=== PATIENT | male | born 1995 | race Caucasian/White ===

== ENCOUNTER 2022-08-19 07:36 | Emergency (ER) | payer MEDICAID, SELFPAY ==
[2022-08-19 07:42] VITALS: BP 115/68; PULSE 77; RESP 12; TEMP 36.6; O2SAT 97; BMI 23.3
[2022-08-19 08:01] VITALS: BP 142/77; PULSE 86; RESP 16; O2SAT 96
--- NOTE | 2022-08-19 08:05 | CT_ITS ---
WS: [id number] CT ABDOMEN AND PELVIS WITH CONTRAST HISTORY: abdominal pain, vomiting TECHNIQUE: Imaging performed of the abdomen and pelvis with IV contrast. Single phase imaging of the abdomen. Coronal and sagittal reformats are submitted. All CT scans at [facility] use at [address] one of these dose optimization techniques: automated exposure control; mA and/or kV adjustment per patient size (includes targeted exams where dose is matched to clinical indication); or iterative re construction. IV CONTRAST: Omnipaque 350; 95 mL IV. Oral contrast: Yes. DLP: 378.98 mGy.cm COMPARISON: None available. Lower thorax: Lung bases are clear. Heart is normal size. No hiatal hernia. Liver/biliary system: Normal size with no intrahepatic dilatation. Gallbladder: Normal. No gallstones or wall thickening. No pericholecystic fluid. Pancreas: Normal size pancreas and pancreatic duct. No adjacent inflammation. Spleen: Normal size spleen. No mass or infarct. Adrenal glands: Normal. Right kidney: Normal. Left kidney: Normal. Aorta: Normal. Lymphadenopathy: None. Free fluid: None. GI tract: Nondistended stomach. Long segment of circumferential submucosal thickening with mucosal en hancement beginning in the descending colon extending into the sigmoid. No obstruction but the lumen is becoming narrowed. No additional areas of stricture identified. Prior appendectomy. Abdominal wall: Unremarkable abdominal wall. No hernia. Pelvis: No free fluid or adenopathy within the pelvis. Bones: L2 bone island. CT/CT abdomen pelvis w con* [id number] IMPRESSION: 1. Long segment stricture beginning in the mid descending colon into the sigmo id. Mild pericolonic stranding with enhancement of the mucosa. Consistent with an acute stricture. Consistent with patient's history of Crohn's disease. 2. Prior appendectomy. 3. No free fluid.
--- NOTE | 2022-08-19 08:06 | W.ED.ABDPA2 ---
Documented by User: ELAYNE Tom 08/19/22 09:00 HPI - Abdominal Pain General: Chief Complaint: Abdominal Pain Stated Complaint: abd pain Time Seen by Provider: 08/19/22 07:37 Source: patient Mode of arrival: ambulatory Limitations: no limitations History of Present Illness: Patient is a nice 27-year-old male who presents to ED today with a complaint of periumbilical abdominal pain. He tells me he has been told previously he has mild Crohn's disease and has had 3 previous colonoscopies for evaluation of this. He tells me his current pain has been present over the past 2 weeks and seems to be worsening. He does not feel like it is characteristic of his previous Crohn's flares. He reports pain as a burning sensation around his periumbilical region that seems to be worse in the mornings. Often times he states he will vomit in the mornings. He does report pain seems to be worse prior to defecation. He states with his Crohn's he often has diarrhea stools and these have not changed in consistency or frequency over the past 2-week period. He does complain of some mild joint pain. No fevers. He has not had any bloody vomitus or stool. States he was seen at a walk in facility about a week ago and had labs performed which showed some elevations of his LFTs. He was told symptoms could be related to heartburn and was placed on 40mg of a PPI which he states has not helped symptoms. Of note he states he has several members of his family that have been diagnosed with colon cancer in their 30s. No etoh/drug use. MD elicited complaint: abdominal pain Pertinent past history: other (has been told he has mild crohn's disease) Onset (ago): week(s) Pain Consistency: constant Location: Periumbilical Severity: moderate Quality: cramping, aching and burning Radiation: back Relieving factors: bowel movement Associated Symptoms: Reports GI cramping, diarrhea, nausea and vomiting; Denies change in stool character, chills, coffee ground emesis, dysuria, fever(s), hematochezia, hematemesis and melena Review of Systems Const: Reports: other (joint pain); Denies: fever(s), chills, body aches, fatigue or malaise ENMT: Denies: throat pain or odynophagia Card: Denies: chest pain, palpitations, edema, swelling of feet/ankles, lightheadedness, pre-syncope, dyspnea on exertion, orthopnea or leg pain with exertion Resp: Denies: dyspnea, productive cough, non-productive cough, pain on inspiration, hemoptysis or chest congestion GI: Reports: abdominal pain, nausea, vomiting, diarrhea and GI cramping; Denies: hematemesis, coffee ground emesis, pain on defecation, rectal pain, change in stool character, hematochezia or melena : Denies: flank pain, difficulty urinating or dysuria Musc: Reports: back pain and joint pain; Denies: neck pain, extremity pain, extremity swelling, joint swelling or limited range of motion Skin/Breast: Denies: rash Neuro: Denies: headache(s), numbness in extremities, weakness in extremities, sensory changes, difficulty walking or dizziness Physical Exam Const: COMMON NORMALS: no acute distress, patient oriented x3, no limitations, alert and well nourished GENERAL APPEARANCE: cooperative ORIENTATION/CONSCIOUSNESS: Yes awake, Yes oriented to person, Yes oriented to place and Yes oriented to time HENMT: COMMON NORMALS: normocephalic and atraumatic HEAD & SCALP: normal to inspection, normocephalic and atraumatic Eye: COMMON NORMALS: no scleral icterus Chest: COMMONS NORMALS: normal inspection of the chest Resp: COMMON NORMALS: normal respiratory effort and clear to auscultation bilaterally AUSCULTATION: clear to auscultation bilaterally Cardio: COMMON NORMALS: regular rate and regular rhythm RATE: regular rate RHYTHM: regular rhythm GI: COMMON NORMALS: Soft to palpation, No hepatosplenomegaly present and no masses INSPECTION: Yes normal to inspection AUSCULTATION: Yes Hypoactive bowel sounds present PALPATION: Yes Soft to palpation, Yes Tenderness to palpation present (GI) (epigastric, periumbilical, LLQ) and Yes No hepatosplenomegaly present : COMMON NORMALS: Yes no CVA tenderness BLADDER/KIDNEY EXAM: Yes no CVA tenderness Back/Pelvis: COMMON NORMALS: no CVA tenderness and thoracic and lumbar spine normal to inspection Extremity: COMMON NORMALS: normal to inspection GENERAL: Yes normal exam except as noted Neuro: JEAN COMA SCALE: document GCS findings Jean coma scale eye opening: Spontaneous [place] coma scale verbal response: Orientated Jean coma scale motor response: Obey commands Jean coma scale total score: 15 COMMON NORMALS: patient oriented x3, moves all extremities, no focal motor deficits, no sensory deficits noted and gait normal SENSORIUM/ORIENTATION: Yes alert, Yes oriented to person, Yes oriented to place and Yes oriented to time Skin: COMMON NORMALS: no rashes or lesions noted and no jaundice GENERAL SKIN EXAM: no rashes or lesions noted Course Vital Signs: Vital signs: Vital Signs Temperature 97.9 F 08/19/22 07:42 Pulse Rate 84 08/19/22 08:42 Respiratory Rate 16 08/19/22 08:42 Blood Pressure 110/49 08/19/22 08:42 Pulse Oximetry 96 08/19/22 08:42 Oxygen Delivery Me thod 08/19/22 08:42 MDM - Abdominal Pain Medical Decision Making Patient is a nice 27-year-old male here for complaints of abdominal pains over the past 2 weeks or so. He does have a history of Crohn's disease. Last colonoscopy was 3 years ago. He is not on any medications for his Crohn's. While here vital signs are stable. His labs overall are unremarkable. His CT scan does show a long segment stricture beginning in the mid descending colon into the sigmoid consistent with patient's history of Crohn's disease. He is not obstructed. He is passing stool and gas. Patient will be placed on steroids at this time and we will get him set up with general surgery. Case discussed with Dr. De Souza who agrees with plan/care for patient. Strict return to ED precautions given. Lab Data 08/19/22 07:54 08/19/22 07:54 Labs/Radiology: Radiology Impressions Abdomen/Pelvis CT 08/19/22 08:05 IMPRESSION: 1. Long segment stricture beginning in the mid descending colon into the sigmoid. Mild pericolonic stranding with enhancement of the mucosa. Consistent with an acute stricture. Consistent with patient's history of Crohn's disease. 2. Prior appendectomy. 3. No free fluid. Laboratory Results WBC 11.0 10^3/uL (4.0-10.0) H 08/19/22 07:54 RBC 4.54 10^6/uL (4.1-5.3) 08/19/22 07:54 Hgb 14.0 g/dL (11.7-16.6) 08/19/22 07:54 Hct 40.9 % (42.0-52.0) L 08/19/22 07:54 MCV 90.1 fl (80-94) 08/19/22 07:54 MCH 30.8 pg (28.0-34.0) 08/19/22 07:54 MCHC 34.2 g/dL (30.0-36.0) 08/19/22 07:54 RDW 11.6 % (12.1-15.1) L 08/19/22 07:54 Plt Count 209 10^3/cmm (130-400) 08/19/22 07:54 MPV 11.3 fL (7.4-10.4) H 08/19/22 07:54 Neut % (Auto) 84.3 % 08/19/22 07:54 Lymph % (Auto) 6.3 % 08/19/22 07:54 [place] % (Auto) 8.2 % 08/19/22 07:54 Eos % (Auto) 0.4 % 08/19/22 07:54 Baso % (Auto) 0.5 % 08/19/22 07:54 Neut # (Auto) 9.25 10^3/uL (1.8-7.7) H 08/19/22 07:54 Lymph # (Auto) 0.7 10^3/uL (0.8-4.8) L 08/19/22 07:54 [place] # (Auto) 0.9 10^3/uL (0.2-0.9) 08/19/22 07:54 Eos # (Auto) 0.0 10^3/uL (0.0-0.8) 08/19/22 07:54 Baso # (Auto) 0.1 10^3/uL (0.0-0.1) 08/19/22 07:54 Nucleated RBC % (auto) 0 % 08/19/22 07:54 Nucleated RBCs # 0.0 /100WBC 08/19/22 07:54 Sodium 140 mmol/L (136-145) 08/19/22 07:54 Potassium 4.2 mmol/L (3.5-5.1) 08/19/22 07:54 Chloride 105 mmol/L (98-107) 08/19/22 07:54 Carbon Dioxide 26 mmol/L (22-29) 08/19/22 07:54 Anion Gap 13.2 (5-19) 08/19/22 07:54 BUN 23 mg/dL (6-20) H 08/19/22 07:54 Creatinine 0.7 mg/dL (0.7-1.2) 08/19/22 07:54 GFR Calculation 137.4 mL/min (90-130) H 08/19/22 07:54 Glucose 104 mg/dL (65-115) 08/19/22 07:54 Calculated Osmolality 294 mOsm/kg (285-295) 08/19/22 07:54 Calcium 9.1 mg/dL (8.5-10.5) 08/19/22 07:54 Total Bilirubin 0.5 mg/dL (0.15-1.2) 08/19/22 07:54 AST 14 U/L (0-40) 08/19/22 07:54 ALT 9 U/L (0-41) 08/19/22 07:54 Alkaline Phosphatase 73 U/L (40-130) 08/19/22 07:54 Total Protein 7.0 g/dL (6.6-8.7) 08/19/22 07:54 Albumin 4.5 g/dL (3.5-5.2) 08/19/22 07:54 Globulin 2.5 g/dL (1.3-4.6) 08/19/22 07:54 Lipase 22 U/L (13-60) 08/19/22 07:54 Urine Color Yellow (Yellow) 08/19/22 08:13 Urine Appearance Clear (CLEAR) 08/19/22 08:13 Urine pH 6 (5-7) 08/19/22 08:13 Ur Specific [place] 1.020 (1.005-1.030) 08/19/22 08:13 Urine Protein Neg (Negative) 08/19/22 08:13 Urine Glucose (UA) Norm (Normal) 08/19/22 08:13 Urine Ketones Negative (Negative) 08/19/22 08:13 Urine Blood Neg (Negative) 08/19/22 08:13 Urine Nitrate Negative (Negative) 08/19/22 08:13 Urine Bilirubin Neg (Negative) 08/19/22 08:13 Urine Urobilinogen Neg mg/dL (Negative) 08/19/22 08:13 Ur Leukocyte Esterase Negative (Negative) 08/19/22 08:13 Discharge Plan Discharge Patient Disposition: Home Clinical Impression: Colon stricture, Crohn's disease Condition: Stable Prescriptions: New prednisone 10 mg tablet 60 mg PO DAILY 5 Days Qty: 30 0RF Discharge Orders: Discharge ED (Routine); Ordered 08/19/22 Ordered By: Subha Pang Patient Instructions: Crohn Disease (ED), Colon Stricture (DC) Activity Restrictions/Additional Instructions: As we discussed we will have you follow-up with general surgery here for further evaluation and possible colonoscopy. Case management should contact you in regards to this appointment. You need to return to the emergency department immediately for worsening or severe abdominal pain, inability to pass gas or stool, repetitive episodes of vomiting, or any other concerns you may have. I hope you begin to feel better soon. Stand Alone Forms: Work/School Release Coding Level of Care Code ED Asphalt Paving Foreman for Chg Fwd Exam Comprehensive Documented by User: Manny De Souza DO 08/19/22 09:03 HPI - Abdominal Pain General: Chief Complaint: Abdominal Pain Stated Complaint: abd pain Time Seen by Provider: 08/19/22 07:37 Physical Exam Neuro: JEAN COMA SCALE: document GCS findings Jean coma scale total score: 15 Course Vital Signs: Vital signs: Vital Signs Temperature 97.9 F 08/19/22 07:42 Pulse Rate 84 08/19/22 08:42 Respiratory Rate 16 08/19/22 08:42 Blood Pressure 110/49 08/19/22 08:42 Pulse Oximetry 96 08/19/22 08:42 Oxygen Delivery Me thod 08/19/22 08:42 MDM - Abdominal Pain Medical Decision Making Patient is a nice 27-year-old male here for complaints of abdominal pains over the past 2 weeks or so. He does have a history of Crohn's disease. Last colonoscopy was 3 years ago. He is not on any medications for his Crohn's. While here vital signs are stable. His labs overall are unremarkable. His CT scan does show a long segment stricture beginning in the mid descending colon into the sigmoid consistent with patient's history of Crohn's disease. He is not obstructed. He is passing stool and gas. Patient will be placed on steroids at this time and we will get him set up with general surgery. Case discussed with Dr. De Souza who agrees with plan/care for patient. Strict return to ED precautions given. Chart reviewed and patient discussed with midlevel. Agree with assessment and plan. Lab Data 08/19/22 07:54 08/19/22 07:54 Labs/Radiology: Radiology Impressions Abdomen/Pelvis CT 08/19/22 08:05
[2022-08-19] MEDS: morphine 4 mg/mL SDV 1 mL IVP (08:09)
[2022-08-19] MEDS: ondansetron 2 mg/ML SDV 2 mL 4 MG IVP (08:09)
[2022-08-19 08:18] LABS: Add Urine Microscopic? NO; Charge for UA Resulting for Rev
[2022-08-19] MEDS: iohexol 350 mg/mL 500 mL Btl (per mL) IV (08:18)
[2022-08-19 08:24] LABS: Basophils # 0.1 10^3/uL (0.0-0.1); Basophils % 0.5 %; Eosinophils % 0.4 %; Hematocrit 40.9 % (42.0-52.0); Lymphocytes # 0.7 10^3/uL (0.8-4.8); Lymphocytes % 6.3 %; Mean Corpuscular HGB Conc 34.2 g/dL (30.0-36.0); Mean Corpuscular Hemoglobin 30.8 pg (28.0-34.0); Mean Corpuscular Volume 90.1 fl (80-94); Mean Platelet Volume 11.3 fL (7.4-10.4); Monocytes # 0.9 10^3/uL (0.2-0.9); Monocytes % 8.2 %; Neutrophils # 9.25 10^3/uL (1.8-7.7); Neutrophils % 84.3 %; Nucleated Red Blood Cells % 0 %; Platelet Count 209 10^3/cmm (130-400); Red Blood Count 4.54 10^6/uL (4.1-5.3); Red Cell Distribution Width 11.6 % (12.1-15.1)
[2022-08-19 08:28] LABS: Bilirubin Urine Neg (Negative); Blood Urine Neg (Negative); Glucose Urine UA Norm (Normal); Ketones Urine Negative (Negative); Leukocyte Esterase Urine Negative (Negative); Nitrate Urine Negative (Negative); Protein Urine Neg (Negative); Urine Appearance Clear (CLEAR); Urine Color Yellow (Yellow); Urobilinogen Urine Neg (Negative); pH Urine 6 (5-7)
[2022-08-19 08:33] LABS: Alanine Aminotransferase 9 U/L (0-41); Albumin Level 4.5 g/dL (3.5-5.2); Alkaline Phosphatase 73 U/L (40-130); Anion Gap 13.2 (5-19); Aspartate Amino Transferase 14 U/L (0-40); Blood Urea Nitrogen 23 mg/dL (6-20); Calcium 9.1 mg/dL (8.5-10.5); Carbon Dioxide 26 mmol/L (22-29); Chloride 105 mmol/L (98-107); Creatinine Clr Calc Pharmacy 142.1555; Globulin 2.5 g/dL (1.3-4.6); Glomerular Filtration Rate 137.4 mL/min (90-130); Glucose 104 mg/dL (65-115); Lipase 22 U/L (13-60); Osmolality Calculated 294 mOsm/kg (285-295); Potassium 4.2 mmol/L (3.5-5.1); Sodium 140 mmol/L (136-145); Total Bilirubin 0.5 mg/dL (0.15-1.2)
[2022-08-19 08:42] VITALS: BP 110/49; PULSE 84; RESP 16; O2SAT 96
[2022-08-19 09:02] VITALS: BP 110/49; PULSE 88; RESP 17; O2SAT 97
--- NOTE | 2022-08-19 11:10 | DCPLANNER ---
Addendum entered by Lynette Silva 08/26/22 11:58: sr. strategic sourcing manager received the following message from general surgery regarding follow up appointment: we don't manage Crohns, please refer elsewhere.. sr. strategic sourcing manager attempted to call patient to confirm where patient would like to follow up. sr. strategic sourcing manager was unable to speak with patient at this time. Original Note: sr. strategic sourcing manager had message to schedule a follow up appointment for patient with general surgery. sr. strategic sourcing manager sent patients information to the front office staff at general surgery. Patients information will be printed and reviewed. Clinic will call patient with appointment information.
== END 2022-08-19 09:02 | disposition home or self-care (01) ==
PROVIDERS: Emergency Provider Physician Assistant
DX: K50.112 Crohn's disease of large intestine with intestinal obstruction (principal)
CPT/HCPCS: 74177; 80053; 81003; 83690; 85025; 96374; 96375; 99285; J2270; J2405; Q9967

== ENCOUNTER 2022-08-19 21:00 | Emergency (ER) | payer MEDICAID, SELFPAY ==
[2022-08-19 21:10] VITALS: BP 113/70; PULSE 73; RESP 16; TEMP 36.8; O2SAT 96; BMI 23.3
--- NOTE | 2022-08-19 22:58 | ED_ITS ---
HPI - Abdominal Pain General: Chief Complaint: Abdominal Pain Stated Complaint: abd pain Time Seen by Provider: 08/19/22 22:54 Source: patient Mode of arrival: ambulatory Limitations: no limitations History of Present Illness: 27-year-old male has a history of Crohn's disease he is seen here earlier this morning diagnosed with a Crohn's flare is prescribed. In his own he has not been having any pain medicine at home and states his pain is worsened diffuse in nature with nausea rates it an 8 out of 10 denies any fever he has follow-up with GI next Tuesday denies any blood in his stool denies any vomiting. Associated Symptoms: Reports nausea; Denies chills, dysuria and fever(s) Review of Systems Const: Denies: fever(s), chills, body aches or change in appetite Eyes: Denies: blurry vision or eye discomfort ENMT: Denies: throat pain or dental pain Card: Denies: chest pain Resp: Denies: dyspnea GI: Reports: abdominal pain and nausea : Denies: dysuria Musc: Denies: neck pain or back pain Skin/Breast: Denies: rash Neuro: Denies: headache(s) Psych: Denies: depression Krz[place]ztof/Lymph: Denies: easy bruising All/Imm: Denies: urticaria PFSH ED PFSH: Medical History (Updated 08/19/22 @ 23:26 by Panda Swain MD) Crohn's disease Social History (Updated 08/19/22 @ 22:59 by Panda Swain MD) Alcohol intake: never Physical Exam Const: COMMON NORMALS: no acute distress, patient oriented x3 and healthy appearing HENMT: COMMON NORMALS: normocephalic and atraumatic HEAD & SCALP: normocephalic and atraumatic Eye: COMMON NORMALS: Equal, round and reactive pupils present and EOMs intact bilaterally PUPIL: Yes Equal, round and reactive pupils present Neck/C-Spine: COMMON NORMALS: full ROM and supple Chest: COMMONS NORMALS: normal inspection of the chest and normal palpation of entire chest wall Resp: COMMON NORMALS: normal respiratory effort, No retractions, No use of accessory muscles and clear to auscultation bilaterally AUSCULTATION: clear to auscultation bilaterally Cardio: COMMON NORMALS: regular rate, regular rhythm and No murmurs present (Cardio) RATE: regular rate RHYTHM: regular rhythm GI: COMMON NORMALS: Normal to inspection, nondistended, normoactive bowel sounds present, Soft to palpation, non-tender and no masses PALPATION: Yes Soft to palpation Extremity: COMMON NORMALS: normal to inspection and full ROM Neuro: COMMON NORMALS: patient oriented x3, moves all extremities and no focal motor deficits Psych: COMMON NORMALS: mental status grossly normal, Normal thought process present and cooperative THOUGHT PROCESS: Normal thought process present Skin: COMMON NORMALS: no rashes or lesions noted and no wounds GENERAL SKIN EXAM: no rashes or lesions noted Course Vital Signs: Vital signs: Vital Signs Temperature 98.3 F 08/19/22 21:10 Pulse Rate 73 08/19/22 21:10 Respiratory Rate 18 08/19/22 23:09 Blood Pressure 113/70 08/19/22 21:10 Pulse Oximetry 95 08/19/22 23:09 Oxygen Delivery Me thod 08/19/22 21:10 MDM - Abdominal Pain Medical Decision Making Patient presents abdominal pain likely from his Crohn's disease he had a CT scan earlier today his blood work here is all normal his pain is improved we will prescribe him pain medicine he has follow-up with GI next Tuesday he is return if worsening. Lab Data 08/19/22 22:59 08/19/22 22:59 Labs/Radiology: Laboratory Results WBC 8.4 10^3/uL (4.0-10.0) 08/19/22 22:59 RBC 4.47 10^6/uL (4.1-5.3) 08/19/22 22:59 Hgb 13.9 g/dL (11.7-16.6) 08/19/22 22:59 Hct 40.7 % (42.0-52.0) L 08/19/22 22:59 MCV 91.1 fl (80-94) 08/19/22 22:59 MCH 31.1 pg (28.0-34.0) 08/19/22 22:59 MCHC 34.2 g/dL (30.0-36.0) 08/19/22 22:59 RDW 11.7 % (12.1-15.1) L 08/19/22 22:59 Plt Count 214 10^3/cmm (130-400) 08/19/22 22:59 MPV 10.8 fL (7.4-10.4) H 08/19/22 22:59 Neut % (Auto) 68.9 % 08/19/22 22:59 Lymph % (Auto) 17.7 % 08/19/22 22:59 [place] % (Auto) 11.1 % 08/19/22 22:59 Eos % (Auto) 1.6 % 08/19/22 22:59 Baso % (Auto) 0.5 % 08/19/22 22:59 Neut # (Auto) 5.78 10^3/uL (1.8-7.7) 08/19/22 22:59 Lymph # (Auto) 1.5 10^3/uL (0.8-4.8) 08/19/22 22:59 [place] # (Auto) 0.9 10^3/uL (0.2-0.9) 08/19/22 22:59 Eos # (Auto) 0.1 10^3/uL (0.0-0.8) 08/19/22 22:59 Baso # (Auto) 0.0 10^3/uL (0.0-0.1) 08/19/22 22:59 Nucleated RBC % (auto) 0 % 08/19/22 22:59 Nucleated RBCs # 0.0 /100WBC 08/19/22 22:59 Sodium 139 mmol/L (136-145) 08/19/22 22:59 Potassium 3.9 mmol/L (3.5-5.1) 08/19/22 22:59 Chloride 102 mmol/L (98-107) 08/19/22 22:59 Carbon Dioxide 27 mmol/L (22-29) 08/19/22 22:59 Anion Gap 13.9 (5-19) 08/19/22 22:59 BUN 15 mg/dL (6-20) 08/19/22 22:59 Creatinine 0.9 mg/dL (0.7-1.2) 08/19/22 22:59 GFR Calculation 102.8 mL/min (90-130) 08/19/22 22:59 Glucose 104 mg/dL (65-115) 08/19/22 22:59 Calculated Osmolality 289 mOsm/kg (285-295) 08/19/22 22:59 Lactate 0.9 mmol/L (0.5-2.2) 08/19/22 22:59 Calcium 9.5 mg/dL (8.5-10.5) 08/19/22 22:59 Total Bilirubin 0.5 mg/dL (0.15-1.2) 12 22:59 AST 15 U/L (0-40) 12 22:59 ALT 10 U/L (0-41) 08/19/22 22:59 Alkaline Phosphatase 70 U/L (40-130) 08/19/22 22:59 Total Protein 7.4 g/dL (6.6-8.7) 12 22:59 Albumin 4.4 g/dL (3.5-5.2) 08/19/22 22:59 Globulin 3.0 g/dL (1.3-4.6) 08/19/22 22:59 Lipase 14 U/L (13-60) 08/19/22 22:59 Discharge Plan Discharge Patient Disposition: Home Clinical Impression: Abdominal pain, Crohn's disease Prescriptions: New hydrocodone-acetaminophen 5-325 mg tablet 1 tab PO Q6H PRN (Reason: pain) Qty: 14 0RF ondansetron 4 mg tablet,disintegrating 4 mg PO Q6H PRN (Reason: nausea and vomiting) Qty: 14 0RF No Action prednisone 10 mg tablet 60 mg PO DAILY 5 Days Qty: 30 0RF Discharge Orders: Discharge ED (Routine); Ordered 08/19/22 Ordered By: Panda Swain Discharge Diet: Advance as tolerated Discharge Activity: Resume usual activity Patient Instructions: Abdominal Pain (ED), Opioid Safety, Pain Management Coding Level of Care Code ED Cleaner Laboratory Equipment for Chg Fwd Exam Comprehensive
[2022-08-19 23:02] LABS: Basophils % 0.5 %; Eosinophils # 0.1 10^3/uL (0.0-0.8); Eosinophils % 1.6 %; Hematocrit 40.7 % (42.0-52.0); Hemoglobin 13.9 g/dL (11.7-16.6); Lymphocytes # 1.5 10^3/uL (0.8-4.8); Lymphocytes % 17.7 %; Mean Corpuscular HGB Conc 34.2 g/dL (30.0-36.0); Mean Corpuscular Hemoglobin 31.1 pg (28.0-34.0); Mean Corpuscular Volume 91.1 fl (80-94); Mean Platelet Volume 10.8 fL (7.4-10.4); Monocytes # 0.9 10^3/uL (0.2-0.9); Monocytes % 11.1 %; Neutrophils # 5.78 10^3/uL (1.8-7.7); Neutrophils % 68.9 %; Nucleated Red Blood Cells % 0 %; Platelet Count 214 10^3/cmm (130-400); Red Blood Count 4.47 10^6/uL (4.1-5.3); Red Cell Distribution Width 11.7 % (12.1-15.1); White Blood Count 8.4 10^3/uL (4.0-10.0)
[2022-08-19 23:09] VITALS: RESP 18; O2SAT 95
[2022-08-19] MEDS: ondansetron 2 mg/ML SDV 2 mL 4 MG IVP (23:09)
[2022-08-19] MEDS: HYDROmorphone 1 mg/mL INJ 1 mL IVP (23:09)
[2022-08-19 23:20] LABS: Lactate (Lactic Acid level) 0.9 mmol/L (0.5-2.2)
[2022-08-19 23:21] LABS: Alanine Aminotransferase 10 U/L (0-41); Albumin Level 4.4 g/dL (3.5-5.2); Alkaline Phosphatase 70 U/L (40-130); Anion Gap 13.9 (5-19); Aspartate Amino Transferase 15 U/L (0-40); Blood Urea Nitrogen 15 mg/dL (6-20); Calcium 9.5 mg/dL (8.5-10.5); Carbon Dioxide 27 mmol/L (22-29); Chloride 102 mmol/L (98-107); Glomerular Filtration Rate 102.8 mL/min (90-130); Glucose 104 mg/dL (65-115); Lipase 14 U/L (13-60); Osmolality Calculated 289 mOsm/kg (285-295); Potassium 3.9 mmol/L (3.5-5.1); Sodium 139 mmol/L (136-145); Total Bilirubin 0.5 mg/dL (0.15-1.2); Total Protein 7.4 g/dL (6.6-8.7)
[2022-08-19 23:40] VITALS: BP 118/63; PULSE 72; RESP 16; O2SAT 97
== END 2022-08-19 23:40 | disposition home or self-care (01) ==
PROVIDERS: Emergency Provider Emergency Medicine
DX: R10.9 Unspecified abdominal pain (principal); K50.90 Crohn's disease, unspecified, without complications
CPT/HCPCS: 80053; 83605; 83690; 85025; 96374; 96375; 99284; J1170; J2405

== ENCOUNTER 2022-08-25 09:55 | Inpatient (IN) | payer MEDICAID, SELFPAY ==
[2022-08-25] VITALS (83 sets, daily range): BP systolic 101–133; BP diastolic 56–83; PULSE 53–71; RESP 15–16; TEMP 36.7–36.9; O2SAT 86–98; BMI 22.9
[2022-08-25 11:23] LABS: Basophils % 0.4 %; Eosinophils # 0.1 10^3/uL (0.0-0.8); Eosinophils % 1.8 %; Hemoglobin 15.2 g/dL (11.7-16.6); Lymphocytes # 1.9 10^3/uL (0.8-4.8); Lymphocytes % 37.1 %; Mean Corpuscular HGB Conc 34.5 g/dL (30.0-36.0); Mean Corpuscular Hemoglobin 30.2 pg (28.0-34.0); Mean Corpuscular Volume 87.5 fl (80-94); Monocytes # 0.5 10^3/uL (0.2-0.9); Monocytes % 9.9 %; Neutrophils # 2.54 10^3/uL (1.8-7.7); Neutrophils % 50.4 %; Nucleated Red Blood Cells % 0 %; Platelet Count 239 10^3/cmm (130-400); Red Blood Count 5.03 10^6/uL (4.1-5.3); Red Cell Distribution Width 11.5 % (12.1-15.1)
--- NOTE | 2022-08-25 11:26 | ED_ITS ---
HPI - Abdominal Pain General: Chief Complaint: Abdominal Pain Stated Complaint: abd pain Time Seen by Provider: 08/25/22 11:26 History of Present Illness: Mr. Garcia is a 27-year-old gentleman with significant past medical history of Crohn's disease presenting to the emergency department due to continued and worsening abdominal pain. Onset of symptoms approximately 1.5 weeks ago and gradual. He notes associated nausea, decreased p.o. intake, weight loss, small bowel movements with blood in stool. He was previously seen in the emergency department on 08/19 and at that time was d iagnosed with a Crohn's flare treated with steroids, antiemetic, analgesia. Despite these treatments patient continues to worsen. Intensity symptoms is moderate to severe. He is unable to tolerate p.o. intake at this time. No other specific changes in health, exacerbating, or alleviating factors identified. The patient reports diagnosis of Crohn's disease in his early teenage years. He recently established care with Dr. Cartwright in [facility] at [facility]. He is not currently on any prescribed treatments for disease modification or chronic treatment. Onset (ago): week(s) Pain Consistency: constant Location: Diffuse Severity: severe Quality: stabbing and aching Radiation: back Migration to: other Exacerbating factors: eating and movement Relieving factors: nothing Context: other Associated Symptoms: Reports anorexia, change in stool character, hematochezia and nausea Review of Systems General: Reports: 10 or more systems reviewed and unremarkable except in HPI and below GI: Reports: nausea, change in stool character and hematochezia PFS ED PFSH: Medical History Crohn's disease Surgical History History of appendectomy Family History (Updated 08/25/22 @ 16:53 by Saeed Castro MD) Other Colon cancer Social History (Updated 08/25/22 @ 16:53 by Saeed Castro MD) Smoking and tobacco status: never smoked Alcohol intake: never Substance/Drug Use: never Physical Exam Const: COMMON NORMALS: alert GENERAL APPEARANCE: cooperative, well developed, in distress (Mild to moderate appearing due to abdominal pain) and ill appearing (Somewhat) HENMT: COMMON NORMALS: normocephalic and atraumatic HEAD & SCALP: normocephalic and atraumatic Eye: COMMON NORMALS: conjunctivae normal CONJUNCTIVA: Yes conjunctivae normal SCLERA: sclerae normal Neck/C-Spine: COMMON NORMALS: supple GENERAL: Yes trachea midline Resp: COMMON NORMALS: clear to auscultation bilaterally EFFORT & INSPECTION: Yes able to speak in complete sentences AUSCULTATION: clear to auscultation bilaterally Cardio: COMMON NORMALS: regular rate and regular rhythm RATE: regular rate RHYTHM: regular rhythm GI: COMMON NORMALS: Soft to palpation PALPATION: Yes Soft to palpation, Yes Tenderness to palpation present (GI), Yes Guarding due to palpation present (GI) and No Rigid due to palpation Extremity: GENERAL: Yes normal exam except as noted and No edema Neuro: COMMON NORMALS: moves all extremities SENSORIUM/ORIENTATION: Yes alert and No Orientation impaired Psych: COMMON NORMALS: mental status grossly normal and Normal thought process present THOUGHT PROCESS: Normal thought process present Course Vital Signs: Vital signs: Vital Signs Temperature 97.8 F 08/26/22 21:57 Pulse Rate 69 08/26/22 21:57 Respiratory Rate 18 08/26/22 21:57 Blood Pressure 109/61 08/26/22 21:57 Pulse Oximetry 94 08/26/22 21:57 Oxygen Delivery Me thod 08/26/22 15:13 MDM - Abdominal Pain Medical Decision Making 27-year-old male presenting with abdominal pain and changes of bowel movement in the context of history of Crohn's not currently on disease modification. Exam as above, abdominal tenderness without evidence of acute surgical abdomen. Labs with no leukocytosis, hemoglobin normal. No significant other derangements. No evidence of UTI. Imaging notable for colitis which does not appear improved despite previous treatment. Did attempt to contact the patient's primary commercial finance analyst however was unable to. Patient only had minimal improvement in treatment with fluids, analgesia, antiemetic and therefore believe that inpatient management is reasonable for acute Crohn's flare. The results of ED evaluation were discussed with the patient including plan for admission due to requirement for level of care not available if discharged to prevent significant worsening/deterioration. Patient agreeable with plan. Discussed with hospitalist service who was agreeable to admit patient. Medical Records I reviewed the patient's medical records. Lab Data I reviewed the patient's lab results. 08/25/22 11:16 08/25/22 11:16 Labs/Radiology: Radiology Impressions Abdomen/Pelvis CT 08/25/22 12:03 IMPRESSION: 1. Findings of acute colitis involving the LEFT colon extending into the sigmoid colon unchanged since the prior recent CT. 2. No drainable fluid collection or abscess. 3. No other significant interval changes. Laboratory Results WBC 5.0 10^3/uL (4.0-10.0) 08/25/22 11:16 RBC 5.03 10^6/uL (4.1-5.3) 08/25/22 11:16 Hgb 15.2 g/dL (11.7-16.6) 08/25/22 11:16 Hct 44.0 % (42.0-52.0) 08/25/22 11:16 MCV 87.5 fl (80-94) 08/25/22 11:16 MCH 30.2 pg (28.0-34.0) 08/25/22 11:16 MCHC 34.5 g/dL (30.0-36.0) 08/25/22 11:16 RDW 11.5 % (12.1-15.1) L 08/25/22 11:16 Plt Count 239 10^3/cmm (130-400) 08/25/22 11:16 MPV 10.0 fL (7.4-10.4) 08/25/22 11:16 Neut % (Auto) 50.4 % 08/25/22 11:16 Lymph % (Auto) 37.1 % 08/25/22 11:16 [place] % (Auto) 9.9 % 08/25/22 11:16 Eos % (Auto) 1.8 % 08/25/22 11:16 Baso % (Auto) 0.4 % 08/25/22 11:16 Neut # (Auto) 2.54 10^3/uL (1.8-7.7) 08/25/22 11:16 Lymph # (Auto) 1.9 10^3/uL (0.8-4.8) 08/25/22 11:16 [place] # (Auto) 0.5 10^3/uL (0.2-0.9) 08/25/22 11:16 Eos # (Auto) 0.1 10^3/uL (0.0-0.8) 08/25/22 11:16 Baso # (Auto) 0.0 10^3/uL (0.0-0.1) 08/25/22 11:16 Nucleated RBC % (auto) 0 % 08/25/22 11:16 Nucleated RBCs # 0.0 /100WBC 08/25/22 11:16 ESR 2 mm/hr (0-10) 08/25/22 11:16 Sodium 138 mmol/L (136-145) 08/25/22 11:16 Potassium 4.0 mmol/L (3.5-5.1) 08/25/22 11:16 Chloride 98 mmol/L (98-107) 08/25/22 11:16 Carbon Dioxide 29 mmol/L (22-29) 08/25/22 11:16 Anion Gap 15.0 (5-19) 08/25/22 11:16 BUN 12 mg/dL (6-20) 08/25/22 11:16 Creatinine 0.8 mg/dL (0.7-1.2) 08/25/22 11:16 GFR Calculation 117.8 mL/min (90-130) 08/25/22 11:16 Glucose 94 mg/dL (65-115) 08/25/22 11:16 Calculated Osmolality 286 mOsm/kg (285-295) 08/25/22 11:16 Calcium 9.6 mg/dL (8.5-10.5) 08/25/22 11:16 Total Bilirubin 0.5 mg/dL (0.15-1.2) 08/25/22 11:16 AST 23 U/L (0-40) 08/25/22 11:16 ALT 12 U/L (0-41) 08/25/22 11:16 Alkaline Phosphatase 63 U/L (40-130) 08/25/22 11:16 C-Reactive Protein 5.9 mg/L (0.0-4.9) H 08/25/22 11:16 Total Protein 7.6 g/dL (6.6-8.7) 08/25/22 11:16 Albumin 4.9 g/dL (3.5-5.2) 08/25/22 11:16 Globulin 2.7 g/dL (1.3-4.6) 08/25/22 11:16 Lipase 16 U/L (13-60) 08/25/22 11:16 Urine Color Yellow (Yellow) 08/25/22 12:38 Urine Appearance Clear (CLEAR) 08/25/22 12:38 Urine pH 7 (5-7) 08/25/22 12:38 Ur Specific [place] 1.010 (1.005-1.030) 08/25/22 12:38 Urine Protein Neg (Negative) 08/25/22 12:38 Urine Glucose (UA) Norm (Normal) 08/25/22 12:38 Urine Ketones Negative (Negative) 08/25/22 12:38 Urine Blood Neg (Negative) 08/25/22 12:38 Urine Nitrate Negative (Negative) 08/25/22 12:38 Urine Bilirubin Neg (Negative) 08/25/22 12:38 Urine Urobilinogen Neg mg/dL (Negative) 08/25/22 12:38 Ur Leukocyte Esterase Negative (Negative) 08/25/22 12:38 Influenza Type A Ag negative (Negative) 08/25/22 12:23 Influenza Type B Ag negative (Negative) 08/25/22 12:23 SARS-CoV-2 Ag (Rapid) Negative (Negative) 08/25/22 12:23 Discharge Plan Discharge Patient Disposition: Placed in Observation Admit Provider: Saeed Castro Clinical Impression: Crohn's disease, Colitis Coding Level of Care Code ED Contact Worker for Chg Fwd Exam Comprehensive
[2022-08-25 11:42] LABS: Alanine Aminotransferase 12 U/L (0-41); Albumin Level 4.9 g/dL (3.5-5.2); Alkaline Phosphatase 63 U/L (40-130); Aspartate Amino Transferase 23 U/L (0-40); Blood Urea Nitrogen 12 mg/dL (6-20); Calcium 9.6 mg/dL (8.5-10.5); Carbon Dioxide 29 mmol/L (22-29); Chloride 98 mmol/L (98-107); Globulin 2.7 g/dL (1.3-4.6); Glomerular Filtration Rate 117.8 mL/min (90-130); Glucose 94 mg/dL (65-115); Lipase 16 U/L (13-60); Osmolality Calculated 286 mOsm/kg (285-295); Sodium 138 mmol/L (136-145); Total Bilirubin 0.5 mg/dL (0.15-1.2); Total Protein 7.6 g/dL (6.6-8.7)
[2022-08-25 11:54] LABS: Slide Review Slide Review Perform
--- NOTE | 2022-08-25 12:03 | CT_ITS ---
WS: [id number] CT ABDOMEN PELVIS TECHNIQUE: Contrast-enhanced CT of the abdomen and pelvis with coronal and sagittal reformatted image s. CLINICAL INFORMATION: worsening abd pain, hx crohns COMPARISON: August 19, 2022 DLP: 375.[address] scans at [facility] use at least one of these dose optimization techniques: automated e xposure control; mA and/or kV adjustment per patient size (includes targeted exams where dose is matc hed to clinical indication); or iterative reconstruction. FINDINGS: Bowel wall thickening with mucosal enhancement involving the descending LEFT colon extendin g into the sigmoid colon compatible with colitis similar to the recent examination. Less prominent delvis wel wall thickening involving transverse colon. Prior appendectomy. No small or large bowel obstructi on. No evidence of drainable fluid collection or abscess. Lung bases are well aerated. Normal liver. Normal portal vein and splenic vein. Normal spleen. Normal GE junction. Normal gallbladder. Adrenal glands are normal. Normal renal parenchymal enhancement hyd ronephrosis. Normal caliber abdominal aorta. Celiac and SMA are patent. CT/CT abdomen pelvis w con* [id number] IMPRESSION: 1. Findings of acute colitis involving the LEFT colon extending into the sigmo id colon unchanged since the prior recent CT. 2. No drainable fluid collection or abscess. 3. No other significant interval changes.
[2022-08-25] MEDS: sodium chloride 0.9% 1,000 ML 999 ML IV (12:39)
[2022-08-25] MEDS: metoclopramide 5 mg/mL SDV 2 mL 10 MG IVP (12:40)
[2022-08-25] MEDS: morphine 4 mg/mL SDV 1 mL IVP (12:40)
[2022-08-25 12:47] LABS: Influenza A by IFA negative (Negative); Influenza B by IFA negative (Negative)
[2022-08-25 12:49] LABS: SARS Covid-2 Antigen Negative (Negative)
[2022-08-25 12:51] LABS: Add Urine Microscopic? NO; Charge for UA Resulting for Rev
[2022-08-25 12:53] LABS: Bilirubin Urine Neg (Negative); Blood Urine Neg (Negative); Glucose Urine UA Norm (Normal); Ketones Urine Negative (Negative); Leukocyte Esterase Urine Negative (Negative); Nitrate Urine Negative (Negative); Protein Urine Neg (Negative); Urine Appearance Clear (CLEAR); Urine Color Yellow (Yellow); Urobilinogen Urine Neg (Negative); pH Urine 7 (5-7)
[2022-08-25] MEDS: iohexol 350 mg/mL 500 mL Btl (per mL) IV (12:55)
[2022-08-25] MEDS: HYDROmorphone 1 mg/mL INJ 1 mL 0.5 MG IVP ×2 (13:26→17:20)
--- NOTE | 2022-08-25 16:52 | PM.HP ---
Providers/Chief Complaint Chief Complaint: abd pain History of Present Illness Kevin Garcia is a 27 year old male with a past medical history of Crohn's disease who presents to [facility] due to a 2-week history of abdominal pain, abdominal distention. He tells me that he has a history of Crohn's disease, diagnosed when he was 14 years old, to his knowledge he does not have any upper GI involvement, his last admission for a exacerbation was roughly 4 to 5 years ago he also had a colonoscopy they found polyps but none were cancerous. He does have a family history of colon cancer. He telemetry for the last 2 weeks has been having abdominal pain abdominal distention, he tells me that he is constipated, when he does go to the bathroom it is hard for him to pass a stool, at times it is bloody. No fevers, no chills, no history of food poisoning, no sick contacts, recent travel Review of Systems Const: Denies: fever(s), chills, fatigue or malaise Eyes: Denies: change in vision ENMT: Denies: nasal congestion Resp: Denies: dyspnea, productive cough, non-productive cough or wheezing GI: Denies: nausea, vomiting, hematemesis or diarrhea : Denies: dysuria Skin/Breast: Denies: rash Neuro: Denies: headache(s), dizziness or vertigo Endo: Denies: polyuria or polydipsia Medications/Allergies Home Medications Medication Instructions Recorded Confirmed Last Taken Type prednisone 10 mg tablet 60 mg PO DAILY 08/25/22 08/25/22 Unknown History Allergies Allergy/AdvReac Type Severity Reaction Status Date / Time Penicillins Allergy ALGY-Hives Verified 08/19/22 07:42 PFSH Acute PFSH: Medical History Crohn's disease Surgical History History of appendectomy Family History (Updated 08/25/22 @ 16:53 by Saeed Castro MD) Other Colon cancer Social History (Updated 08/25/22 @ 16:53 by Saeed Castro MD) Smoking and tobacco status: never smoked Alcohol intake: never Substance/Drug Use: never Vitals/I&O/Wt Last Vital Signs Temp 98.4 F 08/25/22 10:07 Pulse 71 08/25/22 12:11 Resp 15 08/25/22 13:26 BP 121/74 08/25/22 14:35 Pulse Ox 94 08/25/22 14:10 O2 Del Method 08/25/22 12:11 Weight last 48 hrs Weight 62.596 kg Physical Exam Const: COMMON NORMALS: no acute distress and patient oriented x3 Eye: COMMON NORMALS: Equal, round and reactive pupils present and EOMs intact bilaterally Resp: COMMON NORMALS: normal respiratory effort, No retractions, No use of accessory muscles and clear to auscultation bilaterally AUSCULTATION: clear to auscultation bilaterally Cardio: COMMON NORMALS: no JVD, regular rate, regular rhythm, S1 normal heart sound present and S2 normal heart sound present RATE: regular rate RHYTHM: regular rhythm HEART SOUNDS: S1 normal heart sound present and S2 normal heart sound present GI: COMMON NORMALS: Normal to inspection, nondistended, normoactive bowel sounds present, Soft to palpation and non-tender Extremity: COMMON NORMALS: no pedal edema Neuro: COMMON NORMALS: patient oriented x3 Psych: COMMON NORMALS: mental status grossly normal Data 08/25/22 11:16 08/25/22 11:16 A&P Assessment and plan (1) Crohn's disease: (2) Colitis: Plan Crohn's disease exacerbation -Has colitis on CT imaging FINDINGS: Bowel wall thickening with mucosal enhancement involving the descending LEFT colon extending into the sigmoid colon compatible with colitis similar to the recent examination. Less prominent bowel wall thickening involving transverse colon. Prior appendectomy. No small or large bowel obstruction. No evidence of drainable fluid collection or abscess. Lung bases are well aerated. Normal liver. Normal portal vein and splenic vein. Normal spleen. Normal GE junction. Normal gallbladder. Adrenal glands are normal. Normal renal parenchymal enhancement hydronephrosis. Normal caliber abdominal aorta. Celiac and SMA are patent. -There is no GI specialist available here to [facility], and currently transfer is difficult given bed availability at tertiary level centers -Patient is agreeable to admit here to [facility] -We will start him on Solu-Medrol -Cipro and Flagyl for antibiotic coverage -Gentle IV hydration -Morphine for pain control -Clear liquid diet -Stool studies -We will see what CRP, ESR is -Full code -Lovenox for DVT prophylaxis Attestations Medical Necessity Statement*: Patient requires position for Crohn's disease exacerbation, inpatient, greater than 2 midnights Coding Level of Care Code 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
[2022-08-25 17:36] LABS: Erythrocyte Sedimentation Rate 2 mm/hr (0-10)
--- NOTE | 2022-08-25 17:38 | PC.NURSE ---
report called to Shara hyde
--- NOTE | 2022-08-25 17:39 | PC.NURSE ---
Shara KRAMER stated she would call ED when room is ready.
[2022-08-25 17:58] LABS: C Reactive Protein 5.9 mg/L (0.0-4.9)
[2022-08-25] MEDS: ciprofloxacin 400 MG/200 ML PREMIX 200 MG IV (21:24)
[2022-08-25] MEDS: sodium chloride 0.9% 1,000 ML 100 ML IV (21:24)
[2022-08-25] MEDS: pantoprazole 40 mg SDV IVP (21:25)
[2022-08-25] MEDS: morphine 4 mg/mL SDV 1 mL 2 MG IVP (22:15)
[2022-08-25] MEDS: metroNIDAZOLE IV 500 MG/100 ML PREMIX 100 MG IV (23:44)
[2022-08-26] VITALS (10 sets, daily range): BP systolic 104–128; BP diastolic 58–76; PULSE 56–79; RESP 15–18; TEMP 36.4–36.8; O2SAT 94–97
[2022-08-26] MEDS: morphine 4 mg/mL SDV 1 mL 2 MG IVP ×2 (04:07→08:58)
[2022-08-26 04:55] LABS: Basophils % 0.2 %; Eosinophils % 0.2 %; Hematocrit 43.7 % (42.0-52.0); Hemoglobin 14.9 g/dL (11.7-16.6); Lymphocytes # 1.1 10^3/uL (0.8-4.8); Lymphocytes % 22.4 %; Mean Corpuscular HGB Conc 34.1 g/dL (30.0-36.0); Mean Corpuscular Hemoglobin 30.5 pg (28.0-34.0); Mean Corpuscular Volume 89.4 fl (80-94); Mean Platelet Volume 10.9 fL (7.4-10.4); Monocytes # 0.1 10^3/uL (0.2-0.9); Monocytes % 1.8 %; Neutrophils # 3.71 10^3/uL (1.8-7.7); Neutrophils % 74.8 %; Nucleated Red Blood Cells % 0 %; Platelet Count 241 10^3/cmm (130-400); Red Blood Count 4.89 10^6/uL (4.1-5.3); Red Cell Distribution Width 11.2 % (12.1-15.1)
[2022-08-26 05:22] LABS: Blood Urea Nitrogen 12 mg/dL (6-20); Calcium 9.5 mg/dL (8.5-10.5); Carbon Dioxide 28 mmol/L (22-29); Chloride 103 mmol/L (98-107); Glomerular Filtration Rate 117.8 mL/min (90-130); Glucose 127 mg/dL (65-115); Osmolality Calculated 295 mOsm/kg (285-295); Sodium 142 mmol/L (136-145)
[2022-08-26] MEDS: metroNIDAZOLE IV 500 MG/100 ML PREMIX 100 MG IV ×2 (09:02→16:51)
[2022-08-26] MEDS: sodium chloride 0.9% 1,000 ML 100 ML IV ×2 (09:04→18:08)
[2022-08-26] MEDS: ondansetron 2 mg/ML SDV 2 mL 4 MG IVP ×2 (09:11→18:09)
[2022-08-26] MEDS: HYDROmorphone 1 mg/mL INJ 1 mL 0.5 MG IVP ×2 (10:06→14:14)
[2022-08-26] MEDS: pantoprazole 40 mg SDV IVP ×2 (10:13→20:29)
[2022-08-26] MEDS: ciprofloxacin 400 MG/200 ML PREMIX 200 MG IV ×2 (10:14→20:24)
--- NOTE | 2022-08-26 10:43 | PC.CHAP ---
Pastoral Care Encounter/Spiritual Assessment Type of Contact [] Declined orange picker visit [] Patient/Family/Request visit [] Outpatient visit [] Follow-up visit [] Physician referral [] Code/Alert [x] Routine visit [] Staff referral [] Actively dying [] Patient sleeping [] Family support [] [] Out of room [] Palliative care [] [x] Receiving care in room [] Pre-surgical visit [] Trauma [] Long length of stay [] ICU visit [] Other: Relational/Emotional Strength [x] Patient feels connected with others/family/visitors/staff [] Distress [] Loneliness/isolation [] Abandonment Spirituality of Patient [x] Person of Concepcion [] Attends Sabianist of their Concepcion [x] Believes in Prayer [] Reads Bible or Restoration materials [] There are Spiritual issues to be addressed Tai Chi Instructor Interventions [x] Prayer [x] Active listening [x] Non-anxious presence [x] Spiritual/emotional support [] Crisis/trauma care [x] Spiritual counseling [] Bereavement support [] Provided bereavement packet [] Provided Bible/devotional materials [] Provided toy/stuffed animal, coloring book to patient or family member [] Provided Communion [] Anointing/[place] [] Salvation [x] Completed spiritual assessment [] Other: Impact on Illness or Injury [] Angry [] Fearful [x] Anxious [] Often cries [] Exhaustion [] Unable to work [] Unable to attend gnosticism [] Unable to walk/stand [] Unable to read [] Unable to drive [] Unable to eat/drink [] Unable to sleep [] Unable to be with family [] Patient intubated [] Other: Summary dealing with scottyraulmolly wilhelmchilango says he need to go [place] Time spent with patient 10 mins
--- NOTE | 2022-08-26 11:54 | P.PN_ITS ---
Subjective Subjective: Patient continues to have episodes of abdominal pain this morning, no fevers, no chills, no nausea, vomiting Vitals/I&O/Wt Last Vital Signs Temp 97.8 F 08/26/22 07:46 Pulse 69 08/26/22 07:46 Resp 16 08/26/22 07:46 BP 126/76 08/26/22 07:46 Pulse Ox 97 08/26/22 07:46 O2 Del Method 08/26/22 07:46 08/25/22 08/26/22 08/26/22 22:59 06:59 14:59 Intake Total 320 / 320 340 / 660 1000 / 1000 Balance 320 / 320 340 / 660 1000 / 1000 Weight last 48 hrs Weight 62.596 kg Physical Exam Const: COMMON NORMALS: no acute distress and patient oriented x3 Resp: COMMON NORMALS: normal respiratory effort, No retractions, No use of accessory muscles and clear to auscultation bilaterally AUSCULTATION: clear to auscultation bilaterally Cardio: COMMON NORMALS: regular rate, regular rhythm, S1 normal heart sound present and S2 normal heart sound present RATE: regular rate RHYTHM: regular rhythm HEART SOUNDS: S1 normal heart sound present and S2 normal heart sound present GI: COMMON NORMALS: Normal to inspection, nondistended, normoactive bowel sounds present and non-tender Extremity: COMMON NORMALS: no pedal edema Neuro: COMMON NORMALS: patient oriented x3 Psych: COMMON NORMALS: mental status grossly normal Data 08/26/22 03:56 08/26/22 03:56 A&P Assessment and plan (1) Crohn's disease: (2) Colitis: Plan Crohn's disease exacerbation -Has colitis on CT imaging FINDINGS: Bowel wall thickening with mucosal enhancement involving the descending LEFT colon extending into the sigmoid colon compatible with colitis similar to the recent examination. Less prominent bowel wall thickening involving transverse colon. Prior appendectomy. No small or large bowel obstruction. No evidence of drainable fluid collection or abscess. Lung bases are well aerated. Normal liver. Normal portal vein and splenic vein. Normal spleen. Normal GE junction. Normal gallbladder. Adrenal glands are normal. Normal renal parenchymal enhancement hydronephrosis. Normal caliber abdominal aorta. Celiac and SMA are patent. 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
--- NOTE | 2022-08-26 16:30 | PC.NURSE ---
1630 - PT CONTINUES TO COMPLAIN OF INCREASING ABDOMINAL PAIN. RATES PAIN AT 9/10 ON PAIN SCALE. MD INCREASES 0.5MG DILAUDID TO 1MG DILAUDID Q4H. BOWEL SOUNDS PRESENT. ABDOMEN SOFT/TENDER.
[2022-08-26] MEDS: HYDROmorphone 1 mg/mL INJ 1 mL IVP (18:09)
--- NOTE | 2022-08-26 18:22 | P.TS_ITS ---
Transfer Summary Providers Date of Admission: 08/25/22 14:16 Date of Discharge/Transfer: 08/26/22 Attending Provider at Admission: Saeed Castro MD Attending Provider at Transfer: Saeed Castro MD Transfer Plans: Anticipated date of transfer: 08/26/22 . Diagnoses at Discharge Discharge Diagnosis (1) Crohn's disease: Status: Acute (2) Colitis: Status: Acute Reason for Visit Reason for Visit abd pain Hospital Course Hospital Course Kevin Garcia is a 27 year old male with a past medical history of Crohn's disease who presents to [facility] due to a 2-week history of abdominal pain, abdominal distention.? He tells me that he has a history of Crohn's disease, diagnosed when he was 14 years old, to his knowledge he does not have any upper GI involvement, his last admission for a exacerbation was roughly 4 to 5 years ago he also had a colonoscopy they found polyps but none were cancerous.? He does have a family history of colon cancer.? He telemetry for the last 2 weeks has been having abdominal pain abdominal distention, he tells me that he is constipated, when he does go to the bathroom it is hard for him to pass a stool, at times it is bloody.? No fevers, no chills, no history of food poisoning, no sick contacts, recent travel Crohn's disease exacerbation -Has colitis on CT imaging FINDINGS: Bowel wall thickening with mucosal enhancement involving the descending LEFT colon extending into the sigmoid colon compatible with colitis similar to the recent examination. Less prominent bowel wall thickening involving transverse colon. Prior appendectomy. No small or large bowel obstruction. No evidence of drainable fluid collection or abscess. Lung bases are well aerated. Normal liver. Normal portal vein and splenic vein. Normal spleen. Normal GE junction. Normal gallbladder. Adrenal glands are normal. Normal renal parenchymal enhancement hydronephrosis. Normal caliber abdominal aorta. Celiac and SMA are patent. -There is no GI specialist available here to [facility], and currently transfer is difficult given bed availability at tertiary level centers -Patient is agreeable to admit here to [facility] -Continue Solu-Medrol -Cipro and Flagyl for antibiotic coverage -Gentle IV hydration -Switch to Dilaudid for pain control -Clear liquid diet -Stool studies -Full code -Lovenox for DVT prophylaxis Patient continues to have diffuse abdominal pain, his abdomen slightly distended, slightly decreased bowel sounds, received 48 hours of steroids, antibiotic therapy, pain control. Vitals remained stable, no significant electrolyte abnormalities, as we will have any GI coverage here at [facility], attempt was made to transferred to where his GI specialist was at [facility] however he had over a 3-day wait period. Contacted [facility], they have GI, transfer to [facility] for GI evaluation. Physical Exam Const: COMMON NORMALS: no acute distress and patient oriented x3 Resp: COMMON NORMALS: normal respiratory effort, No retractions, No use of accessory muscles and clear to auscultation bilaterally AUSCULTATION: clear to auscultation bilaterally Cardio: COMMON NORMALS: regular rate, regular rhythm, S1 normal heart sound present and S2 normal heart sound present RATE: regular rate RHYTHM: regular rhythm HEART SOUNDS: S1 normal heart sound present and S2 normal heart sound present GI: OTHER: Soft, slightly distended, slightly decreased bowel sounds, diffuse tenderness, no guarding, no rebound, no rigidity Extremity: COMMON NORMALS: no pedal edema Neuro: COMMON NORMALS: patient oriented x3 Psych: COMMON NORMALS: mental status grossly normal TS Data Studies Completed and Pending Pending at discharge Category Date Time Status C Reactive Protein AM LABS Lab 08/27/22 04:00 Ordered C Reactive Protein AM LABS Lab 08/28/22 04:00 Ordered C Reactive Protein AM LABS Lab 08/29/22 04:00 Ordered Clostridioides Difficile PCR Routine Lab 08/25/22 21:00 Ordered Complete Blood Count w/Auto AM LABS Lab 08/27/22 04:00 Ordered Complete Blood Count w/Auto AM LABS Lab 08/28/22 04:00 Ordered Complete Blood Count w/Auto AM LABS Lab 08/29/22 04:00 Ordered Comprehensive Metabolic Panel AM LABS Lab 08/27/22 04:00 Ordered Comprehensive Metabolic Panel AM LABS Lab 08/28/22 04:00 Ordered Comprehensive Metabolic Panel AM LABS Lab 08/29/22 04:00 Ordered Enteric Bacterial Panel by PCR Routine Lab 08/25/22 21:00 Ordered Enteric Parasite Panel by PCR Routine Lab 08/25/22 21:00 Ordered Immunochemical Fecal OCB Routine Lab 08/25/22 21:00 Ordered Lactoferrin Routine Lab 08/25/22 21:00 Ordered Lipase AM LABS Lab 08/27/22 04:00 Ordered Magnesium AM LABS Lab 08/27/22 04:00 Ordered Labs from last 24 hours 08/26/22 08/26/22 03:56 03:56 WBC 5.0 RBC 4.89 Hgb 14.9 Hct 43.7 MCV 89.4 MCH 30.5 MCHC 34.1 RDW 11.2 L Plt Count 241 MPV 10.9 H Neut % (Auto) 74.8 Lymph % (Auto) 22.4 [place] % (Auto) 1.8 Eos % (Auto) 0.2 Baso % (Auto) 0.2 Neut # (Auto) 3.71 Lymph # (Auto) 1.1 [place] # (Auto) 0.1 L Eos # (Auto) 0.0 Baso # (Auto) 0.0 Nucleated RBC % (auto) 0 Nucleated RBCs # 0.0 Sodium 142 Potassium 4.0 Chloride 103 Carbon Dioxide 28 Anion Gap 15.0 BUN 12 Creatinine 0.8 GFR Calculation 117.8 Glucose 127 H Calculated Osmolality 295 Calcium 9.5 Completed Studies During Hospitalization Category Date Time Status CT abdomen pelvis w con* [id number] Stat Cat Scan 08/25/22 12:03 Completed Laboratory Last Values WBC 5.0 10^3/uL (4.0-10.0) 08/26/22 03:56 RBC 4.89 10^6/uL (4.1-5.3) 08/26/22 03:56 Hgb 14.9 g/dL (11.7-16.6) 08/26/22 03:56 Hct 43.7 % (42.0-52.0) 08/26/22 03:56 MCV 89.4 fl (80-94) 08/26/22 03:56 MCH 30.5 pg (28.0-34.0) 08/26/22 03:56 MCHC 34.1 g/dL (30.0-36.0) 08/26/22 03:56 RDW 11.2 % (12.1-15.1) L 08/26/22 03:56 Plt Count 241 10^3/cmm (130-400) 08/26/22 03:56 MPV 10.9 fL (7.4-10.4) H 08/26/22 03:56 Neut % (Auto) 74.8 % 08/26/22 03:56 Lymph % (Auto) 22.4 % 08/26/22 03:56 [place] % (Auto) 1.8 % 08/26/22 03:56 Eos % (Auto) 0.2 % 08/26/22 03:56 Baso % (Auto) 0.2 % 08/26/22 03:56 Neut # (Auto) 3.71 10^3/uL (1.8-7.7) 08/26/22 03:56 Lymph # (Auto) 1.1 10^3/uL (0.8-4.8) 08/26/22 03:56 [place] # (Auto) 0.1 10^3/uL (0.2-0.9) L 08/26/22 03:56 Eos # (Auto) 0.0 10^3/uL (0.0-0.8) 08/26/22 03:56 Baso # (Auto) 0.0 10^3/uL (0.0-0.1) 08/26/22 03:56 Nucleated RBC % (auto) 0 % 08/26/22 03:56 Nucleated RBCs # 0.0 /100WBC 08/26/22 03:56 ESR 2 mm/hr (0-10) 08/25/22 11:16 Sodium 142 mmol/L (136-145) 08/26/22 03:56 Potassium 4.0 mmol/L (3.5-5.1) 08/26/22 03:56 Chloride 103 mmol/L (98-107) 08/26/22 03:56 Carbon Dioxide 28 mmol/L (22-29) 08/26/22 03:56 Anion Gap 15.0 (5-19) 08/26/22 03:56 BUN 12 mg/dL (6-20) 08/26/22 03:56 Creatinine 0.8 mg/dL (0.7-1.2) 08/26/22 03:56 GFR Calculation 117.8 mL/min (90-130) 08/26/22 03:56 Glucose 127 mg/dL (65-115) H 08/26/22 03:56 Calculated Osmolality 295 mOsm/kg (285-295) 08/26/22 03:56 Calcium 9.5 mg/dL (8.5-10.5) 08/26/22 03:56 Total Bilirubin 0.5 mg/dL (0.15-1.2) 08/25/22 11:16 AST 23 U/L (0-40) 08/25/22 11:16 ALT 12 U/L (0-41) 08/25/22 11:16 Alkaline Phosphatase 63 U/L (40-130) 08/25/22 11:16 C-Reactive Protein 5.9 mg/L (0.0-4.9) H 08/25/22 11:16 Total Protein 7.6 g/dL (6.6-8.7) 08/25/22 11:16 Albumin 4.9 g/dL (3.5-5.2) 08/25/22 11:16 Globulin 2.7 g/dL (1.3-4.6) 08/25/22 11:16 Lipase 16 U/L (13-60) 08/25/22 11:16 Urine Color Yellow (Yellow) 08/25/22 12:38 Urine Appearance Clear (CLEAR) 08/25/22 12:38 Urine pH 7 (5-7) 08/25/22 12:38 Ur Specific [place] 1.010 (1.005-1.030) 08/25/22 12:38 Urine Protein Neg (Negative) 08/25/22 12:38 Urine Glucose (UA) Norm (Normal) 08/25/22 12:38 Urine Ketones Negative (Negative) 08/25/22 12:38 Urine Blood Neg (Negative) 08/25/22 12:38 Urine Nitrate Negative (Negative) 08/25/22 12:38 Urine Bilirubin Neg (Negative) 08/25/22 12:38 Urine Urobilinogen Neg mg/dL (Negative) 08/25/22 12:38 Ur Leukocyte Esterase Negative (Negative) 08/25/22 12:38 Influenza Type A Ag negative (Negative) 08/25/22 12:23 Influenza Type B Ag negative (Negative) 08/25/22 12:23 SARS-CoV-2 Ag (Rapid) Negative (Negative) 08/25/22 12:23 Radiology Impressions Abdomen/Pelvis CT 08/25/22 12:03 IMPRESSION: 1. Findings of acute colitis involving the LEFT colon extending into the sigmoid colon unchanged since the prior recent CT. 2. No drainable fluid collection or abscess. 3. No other significant interval changes. Recent Clincial Data Last Vital Signs Temp 97.9 F 08/26/22 15:13 Pulse 76 08/26/22 15:13 Resp 18 08/26/22 18:09 BP 117/67 08/26/22 15:13 Pulse Ox 94 08/26/22 15:13 O2 Del Method 08/26/22 15:13 Vital Signs Temp Pulse Resp BP Pulse Ox O2 Del Method 08/26/22 18:09 18 08/26/22 14:00 64 08/26/22 15:13 97.9 F 76 15 117/67 94 Room Air 08/26/22 12:00 98.3 F 61 15 115/67 95 Room Air 08/26/22 07:46 97.8 F 69 16 126/76 97 Room Air Intake & Output/Weight 08/24/22 08/25/22 08/26/22 08/27/22 06:59 06:59 06:59 06:59 Intake Total 660 / 660 2426.667 / 2426.667 Output Total 800 / 800 Balance 660 / 660 1626.667 / 1626.667 Weight 62.596 kg Vitals Last Vital Signs Temp 97.9 F 08/26/22 15:13 Pulse 76 08/26/22 15:13 Resp 18 08/26/22 18:09 BP 117/67 08/26/22 15:13 Pulse Ox 94 08/26/22 15:13 O2 Del Method 08/26/22 15:13 TS Medications Medications Acetaminophen (Acetaminophen 325 Mg Tablet) 650 mg PO Q6H PRN PRN Reason: Mild/Mod Pain Or Temp >/= 101 Enoxaparin Sodium (Enoxaparin 40 Mg/0.4 Ml Syringe) 40 mg SUBCUT Q24H ANNEMARIE Last Admin: 08/25/22 21:41 Dose: Not Given Hydromorphone HCl (Hydromorphone 1 Mg/Ml Inj 1 Ml) 1 mg IVP Q4H PRN PRN Reason: PAIN Last Admin: 08/26/22 18:09 Dose: 1 mg Ciprofloxacin/Dextrose (Cipro) 400 mg in 200 mls @ 200 mls/hr IV Q12H ANNEMARIE; Protocol Last Infusion: 08/26/22 12:07 Dose: Infused Metronidazole (Flagyl Iv) 500 mg in 100 mls @ 100 mls/hr IV Q8H ANNEMARIE; Protocol Last Infusion: 08/26/22 18:19 Dose: Infused Sodium Chloride (Sodium Chloride 0.9%) 1,000 mls @ 100 mls/hr IV .Q10H ANNEMARIE Last Admin: 08/26/22 18:08 Dose: 100 mls/hr Methylprednisolone Sodium Succinate (Methylprednisolone Sod Succ 40 Mg/Ml Inj) 40 mg IVP Q8H ANNEMARIE Last Admin: 08/26/22 16:51 Dose: 40 mg Ondansetron HCl (Ondansetron 2 Mg/Ml Sdv 2 Ml) 4 mg IVP Q8H PRN PRN Reason: vomiting, or N/V if npo Last Admin: 08/26/22 18:09 Dose: 4 mg Pantoprazole Sodium (Pantoprazole 40 Mg Sdv) 40 mg IVP Q12H [facility] Last Admin: 08/26/22 10:13 Dose: 40 mg Discontinued Medications Hydromorphone HCl (Hydromorphone 1 Mg/Ml Inj 1 Ml) 0.5 mg IVP ONCE ONE Stop: 08/25/22 13:16 Last Admin: 08/25/22 13:26 Dose: 0.5 mg Hydromorphone HCl (Hydromorphone 1 Mg/Ml Inj 1 Ml) 0.5 mg IVP ONCE ONE Stop: 08/25/22 17:13 Last Admin: 08/25/22 17:20 Dose: 0.5 mg Hydromorphone HCl (Hydromorphone 1 Mg/Ml Inj 1 Ml) 0.5 mg IVP Q4H PRN PRN Reason: PAIN Last Admin: 08/26/22 14:14 Dose: 0.5 mg Sodium Chloride (Sodium Chloride 0.9%) 1,000 mls @ 999 mls/hr IV .Q1H1M ONE Stop: 08/25/22 12:38 Last Admin: 08/25/22 12:39 Dose: 999 mls/hr Iohexol (Iohexol 350 Mg/Ml 500 Ml Btl (Per Ml)) 0 ml IV ONCE ONE Stop: 08/25/22 12:56 Last Admin: 08/25/22 12:55 Dose: 100 ml Methylprednisolone Sodium Succinate (Methylprednisolone Sod Succ 125 Mg/2 Ml Inj) 125 mg IVP ONCE ONE Stop: 08/25/22 21:01 Last Admin: 08/25/22 21:25 Dose: 125 mg Metoclopramide HCl (Metoclopramide 5 Mg/Ml Sdv 2 Ml) 10 mg IVP ONCE ONE Stop: 08/25/22 11:39 Last Admin: 08/25/22 12:40 Dose: 10 mg Morphine Sulfate (Morphine 4 Mg/Ml Sdv 1 Ml) 4 mg IVP Q1H PRN PRN Reason: MODERATE TO SEVERE PAIN Last Admin: 08/25/22 12:40 Dose: 4 mg Morphine Sulfate (Morphine 4 Mg/Ml Sdv 1 Ml) 2 mg IVP Q4H PRN PRN Reason: SEVERE PAIN Last Admin: 08/26/22 08:58 Dose: 2 mg Allergies Penicillins Allergy (Verified 08/19/22 07:42) ALGY-Hives Home Medications prednisone 10 mg tablet 60 mg PO DAILY 08/25/22 [History Confirmed 08/25/22] Discharge Plan Discharge Patient Disposition: Home Condition: Stable Prescriptions: No Action prednisone 10 mg tablet 60 mg PO DAILY Discharge Orders: Transfer Out of Facility (Order); Ordered 08/26/22 Ordered By: Saeed Castro Patient Instructions: Opioid Safety Transfer Attestations Time Spent in Transfer Care: less than 30 min Quality Metrics Clinical Quality Measures [ No reported AMI, CVA or VTE this stay] Coding Level of Care Code Acute Lead Sustainability Specialist for [facility] Fwd Diagnoses Crohn's disease K50.90 Colitis K52.9
--- NOTE | 2022-08-26 18:42 | PC.NURSE ---
1840 - DUE TO NO GI SPECIALIST IN HOSPITAL PT IS BEING TRANSFERRED TO [facility]. REPORT GIVEN TO WILLIAMS VALENCIA. PATIENT CONSENTS TO TRANSFER.
[2022-08-26] MEDS: enoxaparin 40 mg/0.4 mL Syringe SUBCUT (20:29)
[2022-08-26] MEDS: acetaminophen 325 mg Tablet 650 MG PO (20:43)
== END 2022-08-26 21:15 | disposition short-term general hospital (02) | DRG 387 ==
LOC: ER 14:28 → MEDSURG 19:25
PROVIDERS: Physician Assistant; Admitting Provider Family Medicine; Emergency Provider Emergency Medicine; Visit Provider Family Medicine
DX: K50.90 Crohn's disease, unspecified, without complications (principal); K52.9 Noninfective gastroenteritis and colitis, unspecified; Z86.010 Personal history of colon polyps; Z80.0 Family history of malignant neoplasm of digestive organs
CPT/HCPCS: 36415; 74177; 80048; 80053; 81003; 83690; 85025; 85651; 86140; 87426; 87804; 96361; 96372; 96374; 96375; 96376; 99285; C9113; J0744; J1170; J1650; J2270; J2405; J2765; J2920; J2930; J3490; J7030; Q9967